=== PATIENT | female | born 1980 | race Caucasian/White ===

== ENCOUNTER 2017-09-10 18:41 | Inpatient (IN) | payer BC, OTHER ==
[~2017-09-10] VITALS: Ht 170.2 cm; Wt 70.3 kg
[2017-09-11] MEDS ORDERED: HYDROXYZINE PAMOATE 25 MG CAPSULE PO PRN (00:30)
[2017-09-11] MEDS ORDERED: ACETAMINOPHEN 325 MG TABLET PO PRN (00:30)
[2017-09-11] MEDS ORDERED: DIAZEPAM 5 MG TABLET PO PRN (00:30)
[2017-09-11] MEDS ORDERED: ONDANSETRON 4 MG/2 ML VIAL IM PRN (00:30)
[2017-09-11] MEDS ORDERED: DICYCLOMINE HCL 20 MG TABLET PO PRN (00:30)
[2017-09-11] MEDS ORDERED: MIRALAX 17 GM POWD.PACK PO PRN (00:30)
[2017-09-11] MEDS ORDERED: LORAZEPAM 2 MG/1 ML VIAL IM PRN (00:30)
[2017-09-11] MEDS ORDERED: IBUPROFEN 400 MG TABLET PO PRN (00:30)
[2017-09-11] MEDS ORDERED: BUPRENORPHINE HCL 2 MG TAB.SUBL SL PRN (00:30)
[2017-09-11] MEDS ORDERED: LOPERAMIDE HCL 2 MG CAPSULE PO PRN ×2 (00:30)
[2017-09-11] MEDS ORDERED: THIAMINE HCL 200 MG/2 ML VIAL IM ONE (00:30)
[2017-09-11] MEDS ORDERED: DIAZEPAM 10 MG TABLET PO PRN (00:30)
[2017-09-11] MEDS ORDERED: MAGNESIUM HYDROXIDE 30 ML LIQUID UDC PO PRN (00:30)
[2017-09-11 02:38] LABS: BASOPHILS # (AUTO) 0.1 K/uL (0.0-8.0); BASOPHILS % (AUTO) 1.2 % (0.0-2.0); EOSINOPHILS # (AUTO) 0.1 K/uL (0.0-0.7); EOSINOPHILS % (AUTO) 1.3 % (0.0-7.0); HEMATOCRIT 27.2 % (31.2-41.9); HEMOGLOBIN 8.4 g/dL (10.9-14.3); LYMPHOCYTES # (AUTO) 2.6 K/uL (20.0-40.0); LYMPHOCYTES % (AUTO) 34.5 % (20.5-51.5); MEAN CORPUSCULAR HEMOGLOBIN 19.4 uug (24.7-32.8); MEAN CORPUSCULAR HGB CONC 31 g/dL (32.3-35.6); MEAN CORPUSCULAR VOLUME 62.7 fL (75.5-95.3); MONOCYTES # (AUTO) 0.5 K/uL (2.0-10.0); MONOCYTES % (AUTO) 7.2 % (0.0-11.0); NEUTROPHILS # (AUTO) 4.2 K/uL (1.8-8.9); NEUTROPHILS % (AUTO) 55.8 % (38.5-71.5); PLATELET COUNT (AUTO) 505 K/uL (179-408); RED BLOOD CELL COUNT(AUTO) 4.34 MIL/uL (3.63-4.92); WHITE BLOOD COUNT (AUTO) 7.6 K/uL (3.8-11.8)
[2017-09-11 02:40] LABS: *URINE HCG, QUAL NEGATIVE (NEGATIVE)
[2017-09-11 02:53] LABS: ALANINE AMINOTRANSFERASE 18 U/L (14-59); ALKALINE PHOSPHATASE 71 U/L (50-136); AMYLASE 39 U/L (25-115); ASPARTATE AMINOTRANSFERASE 26 U/L (15-37); BILIRUBIN,TOTAL 0.4 mg/dL (0.2-1.0); CARBON DIOXIDE 26 mmol/L (21-32); CREATININE 0.9 mg/dL (0.6-1.3); GLUCOSE 103 mg/dL (74-106); LIPASE 92 U/L (73-393); TOTAL PROTEIN, SERUM 8.4 g/dL (6.4-8.2); UREA NITROGEN, BLOOD 14 mg/dL (7-18)
[2017-09-11 02:55] LABS: ETHANOL < 3 MG/DL (0-0)
[2017-09-11 02:57] LABS: *AMPHETAMINE, URINE POSITIVE (NEGATIVE); *BARBITURATE, URINE NEGATIVE (NEGATIVE); *CANNABINOID, URINE POSITIVE (NEGATIVE); *COCCAINE, URINE NEGATIVE (NEGATIVE); *OPIATE, URINE POSITIVE (NEGATIVE); *PHENCYCLIDINE SCREEN,URINE NEGATIVE (NEGATIVE)
[2017-09-11 03:01] LABS: THYROID STIMULATING HORMONE 2.153 mIU/mL (0.358-3.740)
[2017-09-11] MEDS: CLONIDINE HCL 0.1 MG TABLET PO PRN ×2 (03:55→23:54)
[2017-09-11] MEDS: DIAZEPAM 10 MG TABLET PO PRN ×2 (03:56→23:54)
[2017-09-11 03:57] LABS: CHLORIDE 98 mmol/L (98-107); POTASSIUM 3.9 mmol/L (3.5-5.1)
[2017-09-11 04:00] VITALS: BP 127/76
[2017-09-11] MEDS ORDERED: DICYCLOMINE HCL 20 MG TABLET ONE (04:05)
[2017-09-11] MEDS ORDERED: IBUPROFEN 400 MG TABLET ONE (04:05)
[2017-09-11] MEDS ORDERED: DIAZEPAM 10 MG TABLET ONE ×2 (04:06→05:28)
[2017-09-11] MEDS ORDERED: CLONIDINE HCL 0.1 MG TABLET ONE (04:06)
[2017-09-11] MEDS: ONDANSETRON ODT 4 MG TAB.RAPDIS SL PRN (04:12)
[2017-09-11] MEDS: MAG HYDROX/AL HYDROX/SIMETH 30 ML LIQUID UDC PO PRN ×2 (04:13→20:37)
[2017-09-11] MEDS ORDERED: HYDROXYZINE PAMOATE 25 MG CAPSULE ONE ×3 (04:24→23:58)
[2017-09-11] MEDS ORDERED: ONDANSETRON ODT 4 MG TAB.RAPDIS ONE (04:25)
[2017-09-11] MEDS ORDERED: MAG HYDROX/AL HYDROX/SIMETH 30 ML LIQUID UDC ONE (04:25)
[2017-09-11 04:41] LABS: LYMPHOCYTES % (MANUAL) 31 % (20-40); MONOCYTES % (MANUAL) 5 % (2-10); NEUTROPHILS % (MANUAL) 64 % (42-75)
[2017-09-11] MEDS ORDERED: GABA800T2 PO (05:12)
[2017-09-11] MEDS ORDERED: OMEP20TA20 PO (05:12)
[2017-09-11] MEDS ORDERED: DIAZEPAM 10 MG TABLET PO ONE (05:15)
[2017-09-11 08:00] VITALS: BP 120/76
[2017-09-11] MEDS ORDERED: IBUPROFEN 600 MG TABLET PO PRN (09:00)
[2017-09-11] MEDS ORDERED: METHOCARBAMOL 750 MG TABLET PO PRN (09:00)
[2017-09-11] MEDS ORDERED: PATIENT MAY USE OWN MED- MD OK PO SCH ×2 (09:00)
[2017-09-11] MEDS ORDERED: INFLUENZA VACCINE 2017-2018 0.5 ML DISP.SYRIN IM ONE ×2 (09:00→13:30)
[2017-09-11] MEDS ORDERED: PNEUMOCOCCAL 23-VAL P-SAC VAC 0.5 ML VIAL IM ONE ×2 (09:00→13:30)
[2017-09-11] MEDS: MULTIVITAMINS,THERAPEUTIC TABLET PO SCH (09:30)
[2017-09-11] MEDS: THIAMINE HCL 100 MG TABLET PO SCH (09:30)
[2017-09-11] MEDS: FOLIC ACID 1 MG TABLET PO SCH (09:30)
[2017-09-11] MEDS: BUPRENORPHINE HCL 2 MG TAB.SUBL SL SCH ×4 (09:31→20:37)
[2017-09-11] MEDS: DIAZEPAM 10 MG TABLET PO SCH ×4 (09:31→20:44)
[2017-09-11 12:00] VITALS: BP 124/81
[2017-09-11] MEDS ORDERED: PANTOPRAZOLE SODIUM 40 MG TABLET.DR PO SCH (12:00)
[2017-09-11] MEDS: OMEPRAZOLE 20MG PO SCH (13:00)
[2017-09-11] MEDS: GABAPENTIN 400 MG CAPSULE PO SCH ×3 (13:23→20:37)
[2017-09-11 16:00] VITALS: BP 114/74
[2017-09-11 20:00] VITALS: BP 121/88
[2017-09-11] MEDS: diphenhydrAMINE 50 MG CAPSULE PO PRN (20:37)
[2017-09-11] MEDS: METHOCARBAMOL 750 MG TABLET PO PRN (20:37)
[2017-09-12] VITALS: BP 137/72
[2017-09-12 04:00] VITALS: BP 123/71
[2017-09-12 08:00] VITALS: BP 118/88
[2017-09-12] MEDS ORDERED: TUBERCULIN,PURIF.PROT.DERIV. 5 TU/0.1 ML TEST ID ONE (09:00)
[2017-09-12] MEDS: GABAPENTIN 400 MG CAPSULE PO SCH ×4 (09:07→21:48)
[2017-09-12] MEDS: DIAZEPAM 10 MG TABLET PO SCH ×3 (09:08→21:48)
[2017-09-12] MEDS: THIAMINE HCL 100 MG TABLET PO SCH (09:08)
[2017-09-12] MEDS: BUPRENORPHINE HCL 2 MG TAB.SUBL SL SCH ×3 (09:08→21:50)
[2017-09-12] MEDS: FOLIC ACID 1 MG TABLET PO SCH (09:08)
[2017-09-12] MEDS: MULTIVITAMINS,THERAPEUTIC TABLET PO SCH (09:08)
[2017-09-12] MEDS: OMEPRAZOLE 20MG PO SCH (09:21)
[2017-09-12 12:00] VITALS: BP 125/74
[2017-09-12] MEDS: METHOCARBAMOL 750 MG TABLET PO PRN (12:12)
[2017-09-12 14:08] LABS: HEPATITIS B SURFACE AG Negative (Negative)
[2017-09-12 16:00] VITALS: BP 128/87
[2017-09-12] MEDS: NEOMY/BACITRAC/POLYMI OINT 28.35 GM TUBE TOP SCH (16:46)
[2017-09-12 20:00] VITALS: BP 95/69
[2017-09-12] MEDS: diphenhydrAMINE 50 MG CAPSULE PO PRN (21:48)
[2017-09-12] MEDS: BACLOFEN 10 MG TABLET PO SCH (21:48)
[2017-09-12] MEDS: CLONIDINE HCL 0.1 MG TABLET PO SCH (21:49)
[2017-09-13] VITALS: BP 98/68
[2017-09-13 04:00] VITALS: BP 100/67
[2017-09-13 08:00] VITALS: BP 98/63
[2017-09-13] MEDS: NEOMY/BACITRAC/POLYMI OINT 28.35 GM TUBE TOP SCH ×2 (08:25→16:31)
[2017-09-13] MEDS: FOLIC ACID 1 MG TABLET PO SCH (08:25)
[2017-09-13] MEDS: MULTIVITAMINS,THERAPEUTIC TABLET PO SCH (08:25)
[2017-09-13] MEDS: THIAMINE HCL 100 MG TABLET PO SCH (08:25)
[2017-09-13] MEDS: GABAPENTIN 400 MG CAPSULE PO SCH ×4 (08:25→21:35)
[2017-09-13] MEDS: BACLOFEN 10 MG TABLET PO SCH (08:25)
[2017-09-13] MEDS: OMEPRAZOLE 20MG PO SCH (08:26)
[2017-09-13] MEDS: CLONIDINE HCL 0.1 MG TABLET PO SCH ×3 (08:26→21:36)
[2017-09-13] MEDS: DIAZEPAM 5 MG TABLET PO SCH ×2 (08:26→12:04)
[2017-09-13] MEDS ORDERED: BUPRENORPHINE HCL 2 MG TAB.SUBL SL SCH (09:00)
[2017-09-13] MEDS ORDERED: HYDROXYZINE PAMOATE 25 MG CAPSULE PO PRN (09:00)
[2017-09-13 09:07] LABS: BASOPHILS # (AUTO) 0.1 K/uL (0.0-8.0); EOSINOPHILS # (AUTO) 0.2 K/uL (0.0-0.7); EOSINOPHILS % (AUTO) 3.5 % (0.0-7.0); HEMOGLOBIN 8.7 g/dL (10.9-14.3); LYMPHOCYTES # (AUTO) 2.2 K/uL (20.0-40.0); LYMPHOCYTES % (AUTO) 35.4 % (20.5-51.5); MEAN CORPUSCULAR HEMOGLOBIN 19.2 uug (24.7-32.8); MEAN CORPUSCULAR HGB CONC 30 g/dL (32.3-35.6); MEAN CORPUSCULAR VOLUME 64.1 fL (75.5-95.3); MONOCYTES # (AUTO) 0.5 K/uL (2.0-10.0); MONOCYTES % (AUTO) 7.4 % (0.0-11.0); NEUTROPHILS # (AUTO) 3.3 K/uL (1.8-8.9); NEUTROPHILS % (AUTO) 52.7 % (38.5-71.5); PLATELET COUNT (AUTO) 383 K/uL (179-408); RED BLOOD CELL COUNT(AUTO) 4.55 MIL/uL (3.63-4.92); WHITE BLOOD COUNT (AUTO) 6.2 K/uL (3.8-11.8)
[2017-09-13 09:34] LABS: HEMATOCRIT 29.1 % (31.2-41.9)
[2017-09-13 09:54] LABS: CREATININE 0.9 mg/dL (0.6-1.3); MAGNESIUM 2.1 mg/dL (1.8-2.4); POTASSIUM 4.6 mmol/L (3.5-5.1)
[2017-09-13 10:16] LABS: BAND % (MANUAL) 2 % (0-10); EOSINOPHILS % (MANUAL) 2 % (0-8); LYMPHOCYTES % (MANUAL) 33 % (20-40); MONOCYTES % (MANUAL) 6 % (2-10); NEUTROPHILS % (MANUAL) 57 % (42-75)
[2017-09-13] MEDS: METHOCARBAMOL 750 MG TABLET PO PRN (11:11)
[2017-09-13 12:00] VITALS: BP 113/70
[2017-09-13] MEDS: BACLOFEN 20 MG TABLET PO SCH ×2 (14:21→21:35)
[2017-09-13] MEDS: BUPRENORPHINE HCL 2 MG TAB.SUBL SL SCH ×2 (14:21→21:35)
[2017-09-13 16:00] VITALS: BP 104/64
[2017-09-13] MEDS ORDERED: DIAZEPAM 5 MG TABLET PO SCH (17:00)
[2017-09-13 20:00] VITALS: BP 117/70
[2017-09-13] MEDS ORDERED: DIAZEPAM 10 MG TABLET PO SCH (21:00)
[2017-09-14] VITALS: BP 112/78
[2017-09-14 04:00] VITALS: BP 101/74
[2017-09-14 08:00] VITALS: BP 100/60
[2017-09-14] MEDS: THIAMINE HCL 100 MG TABLET PO SCH (08:31)
[2017-09-14] MEDS: MULTIVITAMINS,THERAPEUTIC TABLET PO SCH (08:31)
[2017-09-14] MEDS: BACLOFEN 20 MG TABLET PO SCH ×3 (08:31→21:00)
[2017-09-14] MEDS: GABAPENTIN 400 MG CAPSULE PO SCH ×4 (08:31→21:00)
[2017-09-14] MEDS: FERROUS SULFATE 325 MG TABEC PO SCH ×2 (08:31→21:00)
[2017-09-14] MEDS: ASCORBIC ACID 250 MG TABLET PO SCH (08:31)
[2017-09-14] MEDS: FOLIC ACID 1 MG TABLET PO SCH (08:31)
[2017-09-14] MEDS: NEOMY/BACITRAC/POLYMI OINT 28.35 GM TUBE TOP SCH ×2 (08:32→17:00)
[2017-09-14] MEDS: DIAZEPAM 5 MG TABLET PO SCH ×3 (08:32→21:00)
[2017-09-14] MEDS: OMEPRAZOLE 20MG PO SCH (08:32)
[2017-09-14] MEDS: BUPRENORPHINE HCL 2 MG TAB.SUBL SL SCH ×3 (08:36→21:00)
[2017-09-14] MEDS: CLONIDINE HCL 0.1 MG TABLET PO SCH ×3 (08:45→21:00)
[2017-09-14] MEDS: ONDANSETRON ODT 4 MG TAB.RAPDIS SL PRN (09:33)
[2017-09-14 12:00] VITALS: BP 119/83
[2017-09-14] MEDS: METHOCARBAMOL 750 MG TABLET PO PRN (13:00)
[2017-09-14 17:00] VITALS: BP 122/71
[2017-09-14 20:20] VITALS: BP 100/70
[2017-09-15 00:15] VITALS: BP 114/79
[2017-09-15] MEDS: BACLOFEN 20 MG TABLET PO SCH ×4 (00:28→21:05)
[2017-09-15] MEDS: FERROUS SULFATE 325 MG TABEC PO SCH ×3 (00:29→21:05)
[2017-09-15] MEDS: GABAPENTIN 400 MG CAPSULE PO SCH ×5 (00:32→21:05)
[2017-09-15] MEDS: DIAZEPAM 5 MG TABLET PO SCH ×3 (00:33→21:05)
[2017-09-15] MEDS: BUPRENORPHINE HCL 2 MG TAB.SUBL SL SCH ×3 (00:33→21:06)
[2017-09-15] MEDS ORDERED: BUPRENORPHINE HCL 2 MG TAB.SUBL SL ONE (00:39)
[2017-09-15] MEDS ORDERED: DIAZEPAM 5 MG TABLET ONE (00:40)
[2017-09-15 04:53] VITALS: BP 107/57
[2017-09-15 08:00] VITALS: BP 103/68
[2017-09-15] MEDS: OMEPRAZOLE 20MG PO SCH (09:00)
[2017-09-15] MEDS: MULTIVITAMINS,THERAPEUTIC TABLET PO SCH (09:15)
[2017-09-15] MEDS: THIAMINE HCL 100 MG TABLET PO SCH (09:15)
[2017-09-15] MEDS: FOLIC ACID 1 MG TABLET PO SCH (09:15)
[2017-09-15] MEDS: ASCORBIC ACID 250 MG TABLET PO SCH (09:15)
[2017-09-15] MEDS: CLONIDINE HCL 0.1 MG TABLET PO SCH ×3 (09:16→21:05)
[2017-09-15] MEDS: NEOMY/BACITRAC/POLYMI OINT 28.35 GM TUBE TOP SCH (09:16)
[2017-09-15 12:00] VITALS: BP 112/79
[2017-09-15 16:00] VITALS: BP 98/68
[2017-09-15 20:26] VITALS: BP 118/73
[2017-09-16 00:24] VITALS: BP 109/66
[2017-09-16 04:10] VITALS: BP 102/58
[2017-09-16] MEDS: PANTOPRAZOLE SODIUM 40 MG TABLET.DR PO SCH (06:47)
[2017-09-16] MEDS: ONDANSETRON ODT 4 MG TAB.RAPDIS SL PRN (08:52)
[2017-09-16 09:00] VITALS: BP 132/72
[2017-09-16] MEDS ORDERED: BUPRENORPHINE HCL 2 MG TAB.SUBL SL SCH (09:00)
[2017-09-16] MEDS ORDERED: DIAZEPAM 5 MG TABLET PO SCH (09:00)
[2017-09-16] MEDS: BACLOFEN 20 MG TABLET PO SCH ×3 (09:11→21:36)
[2017-09-16] MEDS: GABAPENTIN 400 MG CAPSULE PO SCH ×4 (09:11→21:36)
[2017-09-16] MEDS: THIAMINE HCL 100 MG TABLET PO SCH (09:11)
[2017-09-16] MEDS: FERROUS SULFATE 325 MG TABEC PO SCH ×2 (09:11→21:36)
[2017-09-16] MEDS: ASCORBIC ACID 250 MG TABLET PO SCH (09:11)
[2017-09-16] MEDS: MULTIVITAMINS,THERAPEUTIC TABLET PO SCH (09:11)
[2017-09-16] MEDS: FOLIC ACID 1 MG TABLET PO SCH (09:11)
[2017-09-16] MEDS: CLONIDINE HCL 0.1 MG TABLET PO SCH ×3 (09:11→21:36)
[2017-09-16 12:54] VITALS: BP 115/73
[2017-09-16] MEDS: NEOMY/BACITRAC/POLYMI OINT 28.35 GM TUBE TOP SCH (16:49)
[2017-09-16 17:18] VITALS: BP 121/70
[2017-09-16 20:00] VITALS: BP 90/70
[2017-09-16] MEDS ORDERED: GABA-536 PO (21:51)
[2017-09-16] MEDS ORDERED: CLON0.1T14 PO (21:51)
[2017-09-16] MEDS ORDERED: FERR325T28 PO (21:51)
[2017-09-16] MEDS ORDERED: IBUP-1955 PO (21:51)
[2017-09-16] MEDS ORDERED: DIPH50CA37 PO (21:51)
[2017-09-16] MEDS ORDERED: BACL20TA PO (21:51)
[2017-09-16] MEDS ORDERED: DICY20TA28 PO (21:51)
[2017-09-16] MEDS ORDERED: ASCO250T5 PO (21:51)
[2017-09-16] MEDS ORDERED: HYDR-3895 PO (21:51)
[2017-09-17] VITALS: BP 101/60
[2017-09-17 04:00] VITALS: BP 101/60
[2017-09-17] MEDS: PANTOPRAZOLE SODIUM 40 MG TABLET.DR PO SCH (06:39)
[2017-09-17 08:30] VITALS: BP 118/81
[2017-09-17 08:50] VITALS: BP 118/81
[2017-09-17] MEDS: NEOMY/BACITRAC/POLYMI OINT 28.35 GM TUBE TOP SCH (08:50)
[2017-09-17] MEDS: CLONIDINE HCL 0.1 MG TABLET PO SCH (08:50)
[2017-09-17] MEDS: MULTIVITAMINS,THERAPEUTIC TABLET PO SCH (08:50)
[2017-09-17] MEDS: FERROUS SULFATE 325 MG TABEC PO SCH (08:50)
[2017-09-17] MEDS: FOLIC ACID 1 MG TABLET PO SCH (08:50)
[2017-09-17] MEDS: BACLOFEN 20 MG TABLET PO SCH (08:50)
[2017-09-17] MEDS: GABAPENTIN 400 MG CAPSULE PO SCH (08:50)
[2017-09-17] MEDS: ASCORBIC ACID 250 MG TABLET PO SCH (08:50)
[2017-09-17] MEDS: THIAMINE HCL 100 MG TABLET PO SCH (08:50)
== END 2017-09-17 09:50 | DRG 895 ==
LOC: SRC 09-11 → EDBD 09-11
PROVIDERS: ADMIT Internal Medicine; ATTEND Internal Medicine
PROC: HZ2ZZZZ Detoxification Services for Substance Abuse Treatment (ICD-10-PCS; principal; 2017-09-11)
PROC: HZ41ZZZ Group Counseling for Substance Abuse Treatment, Behavioral (ICD-10-PCS; 2017-09-14)
PROC: HZ31ZZZ Individual Counseling for Substance Abuse Treatment, Behavioral (ICD-10-PCS; 2017-09-15)
DX: F13.232 Sedative, hypnotic or anxiolytic dependence with withdrawal with perceptual disturbance (principal); B02.29 Other postherpetic nervous system involvement; D52.9 Folate deficiency anemia, unspecified; F10.10 Alcohol abuse, uncomplicated; D50.9 Iron deficiency anemia, unspecified; E86.0 Dehydration; F11.23 Opioid dependence with withdrawal; F12.10 Cannabis abuse, uncomplicated; G89.29 Other chronic pain; Z81.1 Family history of alcohol abuse and dependence; M54.5 Low back pain; Y90.9 Presence of alcohol in blood, level not specified; F15.10 Other stimulant abuse, uncomplicated; F41.9 Anxiety disorder, unspecified; F17.210 Nicotine dependence, cigarettes, uncomplicated; N92.1 Excessive and frequent menstruation with irregular cycle
CPT/HCPCS: 36415; 70030-TC; 80307; 80324; 80346; 80349; 80361; 82746; 83550; 83690; 83735; 84443; 84703; 85025; 86580; 86592; 86705; 86803; 87340; 87806; 90686; 90732; G0480; Q0162; Q0163